=== PATIENT | female | born 1970 | race Two or more races ===

== ENCOUNTER 2017-07-15 11:46 | Emergency (ER) | payer OTHER ==
[~2017-07-15] VITALS: Ht 167.6 cm; Wt 72.6 kg
[2017-07-15] MEDS ORDERED: Albuterol/Ipratropium 3ml neb HHN ONE (12:30)
[2017-07-15 12:44] VITALS: BP 143/88
--- NOTE | 2017-07-15 12:57 | Emergency Room Report ---
History of Present Illness General Chief Complaint: Dizziness Source: Patient Present Illness HPI Patient is a 47-year-old female who presented after increased dizziness. The patient was having acute onset of symptoms. Patient reports having a spinning sensation. This had began after a recent upper respiratory infection. The patient was noted have increased cough. Patient reports being a smoker. She denies any fever.The patient denies any chest discomfort. She states that she been having increased dizziness with movement.She denies any vomiting or diarrhea. Allergies: Coded Allergies: No Known Allergies (Unverified , 07/15/17) Patient History Past Medical History: see triage record Last Menstrual Period: 05/22/17 Now: No Reviewed Nursing Documentation: PMH: Agreed; PSxH: Agreed Nursing Documentation-PMH Past Medical History: No History, Except For Hx Hypertension: Yes Review of Systems All Other Systems: negative except mentioned in HPI Physical Exam Vital Signs Date Time Temp Pulse Resp B/P (MAP) Pulse Ox O2 Delivery O2 Flow Rate FiO2 07/15/17 11:51 97.6 74 16 143/88 97 Room Air 97.5 07/15/17 12:35 21 Sp02 EP Interpretation: reviewed, normal General Appearance: normal inspection, well appearing, no apparent distress, alert, GCS 15 Head: atraumatic ENT: normal ENT inspection, hearing grossly normal, normal voice Neck: normal inspection, full range of motion, supple, no bony tend Respiratory: normal inspection, normal breath sounds, no respiratory distress, no retraction, wheezing Cardiovascular #1: regular rate, rhythm, no edema Gastrointestinal: normal inspection, normal bowel sounds, non tender, soft, no guarding, no hernia Genitourinary: no CVA tenderness Musculoskeletal: normal inspection, back normal, normal range of motion Neurologic: normal inspection, alert, oriented x3, responsive, 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 Differential diagnosis included was not limited to CVA, vertebrobasilar insufficiency, myocardial infarction, benign positional vertigo, labyrinthitis, aspirin overdose among others. Because of complexity of patient's case laboratory testing and imaging studies were ordered. EKG interpreted by me showed normal sinus rhythm without acute ST or T wave changes. The laboratory studies are unremarkable. The patient has exam consistent with peripheral vertigo likely do to benign positional vertigo. Patient was given oral meclizine. Patient had improvement in symptoms.CT head read by radiology showed no evidence of acute CVA. The patient is advised to follow up with primary care doctor in 1-2 days. Patient is advised to return if any worsening condition or if any changes in status that are concerning. This report is dictated with [employer] underwriting specialist software which may occasionally lead to discrepancies related to use of this software. Labs Test 07/15/17 12:30 07/15/17 13:20 White Blood Count 6.7 K/UL (4.8-10.8) Red Blood Count 4.03 M/UL (4.20-5.40) Hemoglobin 11.0 G/DL (12.0-16.0) Hematocrit 34.6 % (37.0-47.0) Mean Corpuscular Volume 86 FL (80-99) Mean Corpuscular Hemoglobin 27.3 PG (27.0-31.0) Mean Corpuscular Hemoglobin Concent 31.8 G/DL (32.0-36.0) Red Cell Distribution Width 13.1 % (11.6-14.8) Platelet Count 343 K/UL (150-450) Mean Platelet Volume 6.8 FL (6.5-10.1) Neutrophils (%) (Auto) 62.9 % (45.0-75.0) Lymphocytes (%) (Auto) 27.8 % (20.0-45.0) Monocytes (%) (Auto) 7.3 % (1.0-10.0) Eosinophils (%) (Auto) 0.9 % (0.0-3.0) Basophils (%) (Auto) 1.2 % (0.0-2.0) Prothrombin Time 9.4 SEC (9.30-11.50) Prothromb Time International Ratio 0.9 (0.9-1.1) Activated Partial Thromboplast Time 28 SEC (23-33) Sodium Level 137 MMOL/L (136-145) Potassium Level 3.9 MMOL/L (3.5-5.1) Chloride Level 103 MMOL/L (98-107) Carbon Dioxide Level 25 MMOL/L (21-32) Anion Gap 9 mmol/L (5-15) Blood Urea Nitrogen 12 mg/dL (7-18) Creatinine 0.6 MG/DL (0.55-1.30) Estimat Glomerular Filtration Rate > 60 mL/min (>60) Glucose Level 127 MG/DL (74-106) Calcium Level 9.1 MG/DL (8.5-10.1) Total Bilirubin 0.2 MG/DL (0.2-1.0) Aspartate Amino Transf (AST/SGOT) 17 U/L (15-37) Alanine Aminotransferase (ALT/SGPT) 32 U/L (12-78) Alkaline Phosphatase 79 U/L (46-116) Total Creatine Kinase 80 U/L (26-308) Creatine Kinase MB 1.0 NG/ML (0.0-3.6) Creatine Kinase MB Relative Index 1.2 Troponin I 0.000 ng/mL (0.000-0.056) Pro-B-Type Natriuretic Peptide 20 pg/mL (0-125) Total Protein 7.4 G/DL (6.4-8.2) Albumin 3.6 G/DL (3.4-5.0) Globulin 3.8 g/dL Albumin/Globulin Ratio 0.9 (1.0-2.7) Triglycerides Level 95 MG/DL (30-150) Cholesterol Level 170 MG/DL (< 200) LDL Cholesterol 93 mg/dL (<100) HDL Cholesterol 65 MG/DL (40-60) Cholesterol/HDL Ratio 2.6 (3.3-4.4) Urine Color Pale yellow Urine Appearance Clear Urine pH 7 (4.5-8.0) Urine Specific [place] 1.010 (1.005-1.035) Urine Protein Negative (NEGATIVE) Urine Glucose (UA) Negative (NEGATIVE) Urine Ketones Negative (NEGATIVE) Urine Occult Blood 1+ (NEGATIVE) Urine Nitrite Negative (NEGATIVE) Urine Bilirubin Negative (NEGATIVE) Urine Urobilinogen Normal MG/DL (0.0-1.0) Urine Leukocyte Esterase 1+ (NEGATIVE) Urine RBC 2-4 /HPF (0 - 2) Urine WBC 0-2 /HPF (0 - 2) Urine Squamous Epithelial Cells Few /LPF (NONE/OCC) Urine Bacteria Occasional /HPF (NONE) Urine HCG, Qualitative Negative (NEGATIVE) Last Vital Signs Date Time Temp Pulse Resp B/P (MAP) Pulse Ox O2 Delivery O2 Flow Rate FiO2 07/15/17 12:49 88 20 98 Room Air 21 07/15/17 11:51 97.6 143/88 97.5 Status: improved Disposition: HOME, SELF-CARE Condition: Stable Scripts Meclizine Hcl* (MECLIZINE*) 25 Mg Tablet 25 MG ORAL THREE TIMES A DAY, #30 TAB Prov: Amador Alford MD 07/15/17 Amador Alford MD Jul 15, 2017 12:57
[2017-07-15 13:03] LABS: BASOPHILS % (AUTO) 1.2 % (0.0-2.0); EOSINOPHILS % (AUTO) 0.9 % (0.0-3.0); HEMATOCRIT 34.6 % (37.0-47.0); LYMPHOCYTES % (AUTO) 27.8 % (20.0-45.0); MEAN CORPUSCULAR VOLUME 86 FL (80-99); MONOCYTES % (AUTO) 7.3 % (1.0-10.0); NEUTROPHILS % (AUTO) 62.9 % (45.0-75.0); PLATELET COUNT 343 K/UL (150-450); RED BLOOD COUNT 4.03 M/UL (4.20-5.40); RED CELL DISTRIBUTION WIDTH 13.1 % (11.6-14.8); WHITE BLOOD COUNT 6.7 K/UL (4.8-10.8)
[2017-07-15 13:14] LABS: ANION GAP 9 mmol/L (5-15); BLOOD UREA NITROGEN 12 mg/dL (7-18); CALCIUM 9.1 MG/DL (8.5-10.1); CARBON DIOXIDE 25 MMOL/L (21-32); CHLORIDE 103 MMOL/L (98-107); CREATININE 0.6 MG/DL (0.55-1.30); POTASSIUM 3.9 MMOL/L (3.5-5.1); SODIUM 137 MMOL/L (136-145)
[2017-07-15 13:16] LABS: INR 0.9 (0.9-1.1)
[2017-07-15 13:26] LABS: ALANINE AMINOTRANSFERASE 32 U/L (12-78); ALBUMIN 3.6 G/DL (3.4-5.0); ALBUMIN/GLOBULIN RATIO 0.9 (1.0-2.7); ALKALINE PHOSPHATASE 79 U/L (46-116); ASPARTATE AMINO TRANSFERASE 17 U/L (15-37); BILIRUBIN,TOTAL 0.2 MG/DL (0.2-1.0); CHOLESTEROL 170 MG/DL (< 200); CREATINE KINASE 80 U/L (26-308); HDL CHOLESTEROL 65 MG/DL (40-60); TRIGLYCERIDES 95 MG/DL (30-150)
[2017-07-15] MEDS ORDERED: MECLIZINE HCL25 MG ORAL (13:47)
[2017-07-15 13:53] LABS: APPEARANCE,URINE CLEAR; BILIRUBIN, URINE NEGATIVE (NEGATIVE); COLOR,URINE PALE YELLOW; GLUCOSE, URINE (UA) NEGATIVE (NEGATIVE); KETONES,URINE NEGATIVE (NEGATIVE); LEUKOCYTE ESTERASE ,URINE 1+ (NEGATIVE); NITRITE,URINE NEGATIVE (NEGATIVE); PH,URINE 7 (4.5-8.0); PROTEIN,URINE NEGATIVE (NEGATIVE); UROBILINOGEN,URINE NORMAL MG/DL (0.0-1.0)
[2017-07-15] MEDS ORDERED: Meclizine 25mg tab ORAL ONE (14:00)
[2017-07-15 14:23] VITALS: BP 133/80
--- NOTE | 2017-07-16 08:28 | Diagnostic Imaging Report ---
Indication: Reason For Exam: SOB Technique: One view of the chest Comparison: none Findings: Lungs and pleural spaces are clear. Heart size is normal Impression: No acute process
--- NOTE | 2017-07-16 08:39 | Diagnostic Imaging Report ---
Indications: Vertigo Technique: Spiral acquisitions obtained through the brain. Angled axial and coronal 5 x 5 mm slices were reconstructed. Total dose length product 1305.71 mGycm. CTDI vol(s) 70.38 mGy. Dose reduction achieved using automated exposure control Comparison: None. Findings: No acute intracranial hemorrhage or edema. No mass effect or midline shift. Normal kelly-white differentiation. Intact calvarium. Visualized orbits and sinuses are unremarkable. Impression: Negative This agrees with the preliminary interpretation provided overnight by [facility] service. The CT scanner at [facility] is accredited by the [employer] and the scans are performed using protocols designed to limit radiation exposure to as low as reasonably achievable to attain images of sufficient resolution adequate for diagnostic evaluation.
== END 2017-07-15 16:00 | disposition home or self-care (01) ==
LOC: EMR 15:33
DX: R42 Dizziness and giddiness (principal); I10 Essential (primary) hypertension
CPT/HCPCS: 36415; 70450; 71045; 80053; 80061; 81003; 81025; 82550; 82553; 83880; 84484; 85025; 85610; 85730; 93005; 94640; 94664; 99283; J7620

== ENCOUNTER 2019-03-03 14:17 | Emergency (ER) | payer OTHER ==
[~2019-03-03] VITALS: Ht 165.1 cm; Wt 72.6 kg
[~2019-03-03 14:17] MED LIST: MECLIZINE HCL25 MG ORAL
--- NOTE | 2019-03-03 16:16 | Emergency Room Report ---
History of Present Illness General Chief Complaint: Upper Extremity Injury Source: Patient Present Illness HPI 48-year-old female presents to the emergency department complaining of 8 out of 10 severity pain in the right wrist in addition to the left wrist status post lifting heavy boxes yesterday. Patient reports she felt a pop in the right wrist and she has been unable to use her hand ever since. Patient reports swelling noted as well. Patient denies any additional notable trauma or fall. Patient denies bruising. She reports she is left-hand dominant. No other aggravating or relieving factors at this time. 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 Denies hx of carpal tunnel syndrome. She denies paresthesias or loss of gross motor movements of the affected extremities. Allergies: Coded Allergies: No Known Allergies (Unverified , 07/15/17) Patient History Past Medical History: see triage record Past Surgical History: none Pertinent Family History: none Last Menstrual Period: irreg Now: No Reviewed Nursing Documentation: PMH: Agreed; PSxH: Agreed Nursing Documentation-PMH Past Medical History: No History, Except For Hx Hypertension: Yes Review of Systems All Other Systems: negative except mentioned in HPI Physical Exam Vital Signs Date Time Temp Pulse Resp B/P (MAP) Pulse Ox O2 Delivery O2 Flow Rate FiO2 03/03/19 14:33 98.2 76 16 141/82 (101) 98 Room Air Sp02 EP Interpretation: reviewed, normal General Appearance: no apparent distress, alert, GCS 15, non-toxic Head: normocephalic, atraumatic Eyes: bilateral eye normal inspection, bilateral eye PERRL ENT: hearing grossly normal, normal voice Neck: full range of motion Respiratory: lungs clear, normal breath sounds, speaking full sentences Cardiovascular #1: regular rate, rhythm, normal capillary refill Cardiovascular #2: 2+ radial (R), 2+ radial (L) Musculoskeletal: normal range of motion, gait/station normal, tender - TTP to the bilateral wrists, pain with ROM testing. pain on the ulnar aspect of the both wrists. there is ST swelling in the right wrist. No obvious deformities, swelling - right wrist Neurologic: alert, motor strength/tone normal, oriented x3, sensory intact, responsive, speech normal, grossly normal Psychiatric: judgement/insight normal Skin: normal color Medical Decision Making PA Attestation Dr. Sanz is my supervising Physician whom patient management has been discussed with. Diagnostic Impression: Primary Impression: Right wrist sprain Qualified Codes: S63.501A - Unspecified sprain of right wrist, initial encounter Additional Impressions: Left wrist sprain Qualified Codes: S63.502A - Unspecified sprain of left wrist, initial encounter Bilateral wrist pain ER Course 48-year-old female presents to the emergency department complaining of 8 out of 10 severity pain in the right wrist in addition to the left wrist status post lifting heavy boxes yesterday. Patient reports she felt a pop in the right wrist and she has been unable to use her hand ever since. Patient reports swelling noted as well. Patient denies any additional notable trauma or fall. Patient denies bruising. She reports she is left-hand dominant. No other aggravating or relieving factors at this time. 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 Denies hx of carpal tunnel syndrome. She denies paresthesias or loss of gross motor movements of the affected extremities. Ddx considered but are not limited to Fracture, dislocation, contusion, Sprain/ Strain/Spasm, carpal tunnel syndrome Vital signs: are WNL, pt. is afebrile H&PE are most consistent with musculoskeletal injury will perform imaging to r/ o fractures/dislocations. ORDERS: - X-ray Right wrist and LEft wrist 3 views each - negative for fx, Dislocation , or significant soft tissue injury, per preliminary read in ED, and signed by YO Villatoro, my supervising physician has reviewed, and agrees with my interpretation. ED INTERVENTIONS: -Francisco wrap applied to the left wrist by satellite installation technician. Pt. remains neurovascularly intact. Right wrist splint applied by satellite installation technician. Pt. remains neurovascularly intact. DISCHARGE: At this time pt. is stable for d/c to home. Will provide printed patient care instructions, and any necessary prescriptions. Care plan and follow up instructions have been discussed with the patient prior to discharge. Other X-Ray Diagnostic Results Other X-Ray Diagnostic Results #1: X-Ray ordered: Right wrist # of Views/Limited Vs Complete: 3 View Indication: Pain EP Interpretation: Yes YO Xray: Interpretation reviewed, by supervising MD, and agrees with findings. Interpretation: no dislocation, no soft tissue swelling, no fractures Impression: No acute disease Electronically Signed by: Vida Villatoro PA-C Other X-Ray Diagnostic Results #2: X-Ray ordered: Left wrist # of Views/Limited Vs Complete: 3 View Indication: Pain EP Interpretation: Yes PA Xray: Interpretation reviewed, by supervising MD, and agrees with findings. Interpretation: no dislocation, no soft tissue swelling, no fractures Impression: No acute disease Electronically Signed by: Vida Villatoro PA-C Last Vital Signs Date Time Temp Pulse Resp B/P (MAP) Pulse Ox O2 Delivery O2 Flow Rate FiO2 03/03/19 14:33 98.2 76 16 141/82 (101) 98 Room Air Disposition: HOME, SELF-CARE Condition: Stable Scripts Diclofenac Sodium (VOLTAREN) 100 Gm Gel..gram. 1 APPLIC TP TID, #100 GM Prov: Vida Villatoro 03/03/19 Naproxen* (NAPROXEN*) 500 Mg Tablet 500 MG ORAL TWICE A DAY for 7 Days, #14 TAB Prov: Vida Villatoro 03/03/19 Departure Forms: Return to Work Return to Work Date: Mar 04, 2019 Work Restrictions: None Other Restrictions: may return to work. please allow use of wrist spint as needed. Return to Full Activity: Mar 04, 2019 Patient Instructions: Wrist Sprain Additional Instructions: Take medications as directed. Follow up with a Primary Care Provider in 3-5 days, even if your symptoms have resolved. Return sooner to ED if new symptoms occur, or current symptoms become worse. - Please note that this Emergency Department Report was dictated using VidSchoolcomputer assistant technology software, occasionally this can lead to erroneous entry secondary to interpretation by the dictation equipment. Vida Villatoro Mar 03, 2019 16:15
--- NOTE | 2019-03-03 16:18 | NUR ---
ED Nurse Note: AMBULATED TO ED C/O RIGHT WRIST PAIN AFTER LIFTING LUGGAGE YESTERDAY AT 1100. FULL RANGE OF MOTION NO DEFORMITIES NOTED. AO4 NAD VSS
--- NOTE | 2019-03-03 16:24 | NUR ---
ED Nurse Note: IMAGING AT BEDSIDE. XRAY COMPLETED WITH SANDWICH AND DRINK CART OPERATOR
[2019-03-03 16:27] VITALS: BP 141/82
--- NOTE | 2019-03-03 16:30 | NUR ---
ED Nurse Note: provided patient with splint and bre wrap
[2019-03-03] MEDS ORDERED: VOLTAREN100 G1 TP (16:36)
[2019-03-03] MEDS ORDERED: NAPROXEN500 M2 ORAL (16:36)
--- NOTE | 2019-03-03 16:41 | Diagnostic Imaging Report ---
Indication: Left wrist pain Findings: 3 views of the left wrist were obtained. No acute fractures, malalignment, erosions or periostitis are identified. There is mild soft tissue swelling.. Impression: No acute findings.
--- NOTE | 2019-03-03 16:42 | Diagnostic Imaging Report ---
Indication: Right wrist pain COMPARISON: None Findings: 3 views of the right wrist were obtained. No acute fractures, malalignment, erosions or periostitis are identified. Soft tissues are unremarkable. Impression: No acute findings.
[2019-03-03 16:45] VITALS: BP 141/82
--- NOTE | 2019-03-03 16:45 | NUR ---
ER DISCHARGE NOTE: Patient is cleared to be discharged per ERMD, pt is aox4, on room air, with stable vital signs. pt was given dc and prescription instructions, pt was able to verbalize understanding, pt id bandremoved. pt is able to ambulate with steady gait. pt took all belongings.
== END 2019-03-03 16:45 | disposition home or self-care (01) ==
LOC: EMR 16:30
DX: S63.501A Unspecified sprain of right wrist, initial encounter (principal); S63.502A Unspecified sprain of left wrist, initial encounter; I10 Essential (primary) hypertension; X50.0XXA Overexertion from strenuous movement or load, initial encounter; Y92.9 Unspecified place or not applicable
CPT/HCPCS: 29125; 99284